=== PATIENT | male | born 1995 | race Caucasian/White ===

== ENCOUNTER 2020-02-21 15:29 | Inpatient (IN) ==
[2020-02-21] MEDS ORDERED: KETOROLAC TROMETHAMINE 15 MG/ML VIAL IV STA (16:26)
[2020-02-21] MEDS ORDERED: ONDANSETRON INJ 2 MG/ML 2 ML VIAL IV STA ×2 (16:26→19:06)
[2020-02-21] MEDS ORDERED: SODIUM CHLORIDE 0.9% 1000ML 1,000 ML IV ONE (16:26)
[2020-02-21 17:15] LABS: Basophils # (auto) 0.03 K/uL (0-0.2); Basophils % (auto) 0.2 %; Eosinophils % (auto) 1.6 %; Hematocrit (blood only) 42.5 % (42-52); Hemoglobin 14.7 g/dL (14.0-18.0); Immature Granulocytes # (auto) 0.02 K/uL (0.00-0.02); Immature Granulocytes % (auto) 0.2 %; Lymphocytes # (auto) 1.52 K/uL (1.2-3.4); Lymphocytes % (auto) 12.2 %; Mean Corpuscular Hemoglobin 31.7 pg (25-34); Mean Corpuscular Hgb Conc 34.6 g/dL (32-36); Mean Corpuscular Volume 91.6 fL (80-100); Mean Platelet Volume 10.1 fL (7.4-10.4); Monocytes # (auto) 1.38 K/uL (0.11-0.59); Monocytes % (auto) 11.1 %; Neutrophils # (auto) 9.31 K/uL (1.4-6.5); Neutrophils % (auto) 74.7 %; Platelet Count 214 K/uL (130-400); RDW Coefficient of Variation 11.8 % (11.5-14.5); RDW Standard Deviation 39.9 fL (36.4-46.3); Red Blood Count 4.64 M/uL (4.7-6.1); White Blood Count 12.46 K/uL (4.8-10.8)
--- NOTE | 2020-02-21 17:29 | Emergency Department Note ---
History of Present Illness General Chief Complaint: Kidney Stone Stated Complaint: KIDNEY STONE Time Seen by Provider: 02/21/20 16:25 History of Present Illness Provider Complaint: flank pain Onset (ago): 1 day(s) Pain Consistency: constant Location: L flank Radiation: none Severity: moderate Maximum Pain Intensity: 7 Current Pain Intensity: 7 Quality: + stabbing and + sharp Relieved By: + nothing Exacerbated By: + nothing Context: + history of similar episodes (History of kidney stones) Associated Symptoms: + nausea, + vomiting (5 times today. No hematemesis coffee-ground emesis or bilious vomiting.) and + dysuria; no fever, no chills, no hematemesis, no hematochezia, no melena, no hematuria, no syncope, no headache and no chest pain Patient reports increased urinary frequency but decreased urinary amount. Patient states he had a lithotripsy done on February 08, 2020, and is scheduled to have a ureteral stent placed next Tuesday. Home Medications Medication Instructions Recorded Confirmed Type tamsulosin 0.4 mg capsule 0.4 mg PO DAILY #30 cap 01/25/20 02/21/20 Rx ibuprofen 800 mg PO Q8H PRN #30 tab 02/15/20 02/21/20 Rx ondansetron 4 mg PO Q6H PRN #14 tab 02/15/20 02/21/20 Rx oxycodone-acetaminophen 5 mg-325 1 tab PO Q8H PRN #10 tab 02/20/20 02/21/20 Rx mg tablet Allergies Allergy/AdvReac Type Severity Reaction Status Date / Time No Known Allergies Allergy Verified 02/21/20 16:51 Past Med/Surg History Medical History Left ureteral calculus Surgical History H/O wisdom tooth extraction History of abdominal surgery as an infant for pyloric stenosis S/P arthroscopy of right shoulder Family History Other No family history of adverse response to anesthesia Social History Smoking Status: Never smoker Tobacco Type: E-cigarettes / Vaping Second Hand Exposure: No; Hx Alcohol Use: Yes Hx Substance Use: Yes (x3 week (recreational)) Last Used Substance Other:: 01/25/20 Preferred Language: Yoruba Communication Ability: Effective Brick Offbearer Required: No Beliefs That Will Affect Care: None Current Living Situation: Other Current Living Situation Comment: room mates current occupational status: student Feels Safe at Home: Yes Assistive Devices: Contacts and Glasses Review of Systems A total of 10 systems reviewed and were otherwise negative Physical Exam Vital Signs: Vital Signs - 24 hr 02/21/20 15:45 02/21/20 17:14 02/21/20 19:02 Temperature 37.4 C Temperature Source Temporal Artery Sc an Pulse Rate 90 Pulse Rate [Right Finger] 73 67 Respiratory Rate 18 16 20 Respiratory Effort / Characteristics Non-Labored Non-Labored Sponta neous Nasal Conges tion Respiratory Depth Normal Normal Blood Pressure [Le ft Arm] 141/97 H 147/91 H Blood Pressure Donna n [Left Arm] 111 109 Blood Pressure Pos ition [Left Arm] Lying Pulse Oximetry 98 98 99 Oxygen Delivery Me thod Room Air Room Air Sepsis Recent Feve r Within 48 Hours No Sepsis New/Unexpla ined Change in Men kymberly Status No Sepsis Action Take n by Nursing No Action Required Physical Exam: Physical Exam GENERAL: He is oriented to person, place, and time. He appears well-developed and well-nourished. He does not appear distressed. HENT: Exam performed. - Head: Normocephalic and atraumatic. - Right Ear: External ear normal. No mastoid tenderness. - Left Ear: External ear normal. No mastoid tenderness. - Mouth/Throat: The oropharynx is clear and moist. No trismus in the jaw. No dental abscesses or uvula swelling. No oropharyngeal exudate or tonsillar abscesses. EYES: Conjunctivae and EOM are normal. Pupils are equal, round, and reactive to light. Right eye exhibits no discharge. Left eye exhibits no discharge. No scleral icterus. NECK: Normal range of motion. Neck supple. No JVD present. No spinous process tenderness present. No carotid bruit present. No rigidity. No tracheal deviation and normal range of motion present. No Brudzinski's sign and no Kernig's sign noted. CV: Normal rate, regular rhythm, normal heart sounds and intact distal pulses. There is no peripheral edema. Palpable radial pulses bue. PULM/CHEST: Effort normal and breath sounds normal. No respiratory distress. No stridor. He has no wheezes. He has no rales. - Chest Wall: He exhibits no tenderness. ABD: The abdomen is soft. Bowel sounds are normal. He has no distension. No mass is present. There is no tenderness. There is no rebound, no guarding, no Lott's sign and no tenderness at McBurney's point. Rovsig negative. Left- sided CVA tenderness. MUSC/SKEL: Normal range of motion. There is no peripheral edema, tenderness or deformity. LYMPH: No cervical adenopathy. NEURO: He is alert and oriented to person, place, and time. He has normal strength. No cranial nerve deficit or sensory deficit. Coordination and gait normal. GCS eye subscore is 4. GCS verbal subscore is 5. GCS motor subscore is 6. Cerebellar tests wnl. SKIN: Skin is warm and dry. He is not diaphoretic. PSYCH: He has a normal mood and affect. Behavior is normal. Judgment and thought content normal. Course Course 1625: The patient was evaluated in room B10. A complete history and physical exam was performed. 1835: Vital signs stable. Labs show leukocytosis of 12.46. Creatinine elevated 1.78. CT does show a left-sided 6 mm kidney stone with hydronephrosis. Discussed with Aubrey Mcdaniel PA-C on-call for urology who states he will be down to admit the patient. Patient states he cannot give urine sample and is in agreement with the plan to be admitted. Administered Medications Sodium Chloride (Nss 1000ml) 1,000 mls @ 100 mls/hr IV .Q10H DREW Stop: 03/22/20 20:29 Last Admin: 02/21/20 20:27 Dose: 100 mls/hr Documented by: [id number] Discontinued Medications Sodium Chloride (Nss 1000ml) 1,000 mls @ 999 mls/hr IV .Q1H1M ONE Stop: 02/21/20 17:26 Last Infusion: 02/21/20 18:12 Dose: 0 mls/hr Documented by: [id number] Admin: 02/21/20 17:11 Dose: 999 mls/hr Documented by: [id number] Ketorolac Tromethamine (Ketorolac Tromethamine 15 Mg/Ml Vial) 15 mg IV NOW STA Stop: 02/21/20 16:27 Last Admin: 02/21/20 17:11 Dose: 15 mg Documented by: [id number] Ondansetron HCl (Ondansetron Inj 2 Mg/Ml 2 Ml Vial) 4 mg IV NOW STA Stop: 02/21/20 16:27 Last Admin: 02/21/20 17:11 Dose: 4 mg Documented by: [id number] Ondansetron HCl (Ondansetron Inj 2 Mg/Ml 2 Ml Vial) 4 mg IV NOW STA Stop: 02/21/20 19:07 Last Admin: 02/21/20 19:11 Dose: 4 mg Documented by: [id number] Medical Decision Making Laboratory Data Result diagrams: 02/21/20 17:00 02/21/20 17:00 Lab Results 02/21/20 02/21/20 02/21/20 Range/Units 17:00 17:00 17:00 WBC 12.46 H (4.8-10.8) K/uL RBC 4.64 L (4.7-6.1) M/uL Hgb 14.7 (14.0-18.0) g/dL Hct 42.5 (42-52) % MCV 91.6 (80-100) fL MCH 31.7 (25-34) pg MCHC 34.6 (32-36) g/dL RDW Std Deviation 39.9 (36.4-46.3) fL RDW Coeff of Jama 11.8 (11.5-14.5) % Plt Count 214 (130-400) K/uL MPV 10.1 (7.4-10.4) fL Immature Gran % (Auto) 0.2 % Neut % (Auto) 74.7 % Lymph % (Auto) 12.2 % Boyle % (Auto) 11.1 % Eos % (Auto) 1.6 % Baso % (Auto) 0.2 % Neut # (Auto) 9.31 H (1.4-6.5) K/uL Lymph # (Auto) 1.52 (1.2-3.4) K/uL Boyle # (Auto) 1.38 H (0.11-0.59) K/uL Eos # (Auto) 0.20 (0-0.5) K/uL Baso # (Auto) 0.03 (0-0.2) K/uL Immature Gran # (Auto) 0.02 (0.00-0.02) K/uL Sodium 141 (136-145) mmol/L Potassium 3.5 (3.5-5.1) mmol/L Chloride 106 (98-107) mmol/L Carbon Dioxide 30 (21-32) mmol/L Anion Gap 5.0 (3-11) BUN 11 (7-18) mg/dl Creatinine 1.78 H (0.6-1.4) mg/dl Est Cr Clr Drug Dosing 67.4 ml/min Est GFR ( Amer) 61.4 Est GFR (Non-Af Amer) 53.0 BUN/Creatinine Ratio 6.3 L (10-20) Glucose 99 (70-99) mg/dl Lactate 1.3 (0.4-2.0) mmol/L Calcium 8.7 (8.5-10.1) mg/dl Total Bilirubin 0.8 (0.2-1) mg/dl Direct Bilirubin 0.2 (0-0.2) mg/dl AST 14 L (15-37) U/L ALT 20 (12-78) U/L Alkaline Phosphatase 72 (45-117) U/L Total Protein 7.7 (6.4-8.2) gm/dl Albumin 4.2 (3.4-5.0) gm/dl Lipase 91 (73-393) U/L SARS-CoV-2 Ag (Rapid) (Negative) 02/21/20 Range/Units 19:12 WBC (4.8-10.8) K/uL RBC (4.7-6.1) M/uL Hgb (14.0-18.0) g/dL Hct (42-52) % MCV (80-100) fL MCH (25-34) pg MCHC (32-36) g/dL RDW Std Deviation (36.4-46.3) fL RDW Coeff of Jama (11.5-14.5) % Plt Count (130-400) K/uL MPV (7.4-10.4) fL Immature Gran % (Auto) % Neut % (Auto) % Lymph % (Auto) % Boyle % (Auto) % Eos % (Auto) % Baso % (Auto) % Neut # (Auto) (1.4-6.5) K/uL Lymph # (Auto) (1.2-3.4) K/uL Boyle # (Auto) (0.11-0.59) K/uL Eos # (Auto) (0-0.5) K/uL Baso # (Auto) (0-0.2) K/uL Immature Gran # (Auto) (0.00-0.02) K/uL Sodium (136-145) mmol/L Potassium (3.5-5.1) mmol/L Chloride (98-107) mmol/L Carbon Dioxide (21-32) mmol/L Anion Gap (3-11) BUN (7-18) mg/dl Creatinine (0.6-1.4) mg/dl Est Cr Clr Drug Dosing ml/min Est GFR ( Amer) Est GFR (Non-Af Amer) BUN/Creatinine Ratio (10-20) Glucose (70-99) mg/dl Lactate (0.4-2.0) mmol/L Calcium (8.5-10.1) mg/dl Total Bilirubin (0.2-1) mg/dl Direct Bilirubin (0-0.2) mg/dl AST (15-37) U/L ALT (12-78) U/L Alkaline Phosphatase (45-117) U/L Total Protein (6.4-8.2) gm/dl Albumin (3.4-5.0) gm/dl Lipase (73-393) U/L SARS-CoV-2 Ag (Rapid) Negative (Negative) Imaging Data Radiologist's Impression: CT SCAN OF THE ABDOMEN AND PELVIS WITHOUT IV CONTRAST CLINICAL HISTORY: Left flank pain. COMPARISON STUDY: Abdominal CT dated 02/15/2020. TECHNIQUE: CT scan of the abdomen and pelvis is performed from the lung bases to the proximal femora. Images are reviewed in the axial, sagittal, and coronal planes. IV contrast was not administered for this examination. A dose lowering technique was utilized adhering to the principles of ALARA. CT DOSE: 318.25 mGy.cm FINDINGS: Lung bases: The heart is normal in size and without pericardial effusion. The lung bases are clear. Liver: The unenhanced liver is normal in size, contour, and attenuation. There is no intrahepatic biliary ductal dilatation. Gallbladder: Unremarkable. Spleen: Normal in size and attenuation. Pancreas: Unremarkable. Adrenal glands: Unremarkable. Kidneys: The unenhanced kidneys are normal in size. There is a 6 mm obstructing calculus in the distal left ureter located just above the vesicoureteral junction seen on image #375. This causes moderate left hydroureteronephrosis. There is associated left-sided perinephric and periureteric stranding. No additional left renal calculi are identified. No right renal calculi are seen and there is no right-sided hydronephrosis. There is no evidence of contour deforming renal mass lesion. Abdominal vasculature: The abdominal aorta is normal in course and caliber. Bowel: There is no bowel obstruction. The appendix is well-visualized and normal. Peritoneum: There is no intraperitoneal free air or abdominal ascites. Lymphadenopathy: None. Pelvic viscera: The bladder is decompressed and grossly unremarkable. The prostate and seminal vesicles are normal as visualized. Skeletal structures: No lytic or blastic lesions are seen. IMPRESSION: 1. There is a 6 mm obstructing calculus in the distal left ureter just above the vesicoureteral junction. This causes moderate left hydroureteronephrosis and has not significantly changed from 02/15/2020. 2. No additional calculi are identified in either kidney. ACT 112: Negative or not required by law. Electronically signed by: Adama Gomes M.D. 02/21/2020 6:23 PM Dictated: 02/21/201817Transcribed: 02/21/201817 MDM Narrative Vital signs stable. Labs show leukocytosis of 12.46. Creatinine elevated 1.78. CT does show a left-sided 6 mm kidney stone with hydronephrosis. Discussed with Aubrey Mcdaniel PA-C on-call for urology who states he will be down to admit the patient. Patient states he cannot give urine sample and is in agreement with the plan to be admitted. Impression & Plan Hydronephrosis due to obstruction of ureter, Ureterolithiasis, ELLA (acute kidney injury) Discharge Plan Visit Data Chief Complaint: Kidney Stone Stated Complaint: KIDNEY STONE ED Provider: Binu Vasquez Discharge Problem: Hydronephrosis due to obstruction of ureter, Ureterolithiasis, ELLA (acute kidney injury) Patient Disposition: Being Evaluated by Surgeon Forms Stand Alone Forms: Clicks for a Cause Prescriptions Prescriptions: No Action oxycodone-acetaminophen 5-325 mg tablet 1 tab PO Q8H PRN (Reason: Pain) Qty: 10 RF: 0 tamsulosin [Flomax] 0.4 mg capsule 0.4 mg PO DAILY Qty: 30 RF: 1 ibuprofen 800 mg tablet 800 mg PO Q8H PRN (Reason: pain) Qty: 30 RF: 0 ondansetron 4 mg tablet,disintegrating 4 mg PO Q6H PRN (Reason: nausea and vomiting) Qty: 14 RF: 0 Referrals Referrals: [facility] [Primary Care Provider] -
[2020-02-21 17:34] LABS: Albumin Level 4.2 gm/dl (3.4-5.0); BUN Creatinine Ratio 6.3 (10-20); Bilirubin Direct 0.2 mg/dl (0-0.2); Calcium 8.7 mg/dl (8.5-10.1); Creatinine Clr Calc Pharmacy 67.4 ml/min; Est GFR (African American) 61.4; Potassium 3.5 mmol/L (3.5-5.1)
[2020-02-21 17:37] LABS: Bilirubin,Total 0.8 mg/dl (0.2-1); Total Protein 7.7 gm/dl (6.4-8.2)
--- NOTE | 2020-02-21 18:24 | CT Scan Report ---
CT SCAN OF THE ABDOMEN AND PELVIS WITHOUT IV CONTRAST CLINICAL HISTORY: Left flank pain. COMPARISON STUDY: Abdominal CT dated 02/15/2020. TECHNIQUE: CT scan of the abdomen and pelvis is performed from the lung bases to the proximal femora. Images are reviewed in the axial, sagittal, and coronal planes. IV contrast was not administered for this examination. A dose lowering technique was utilized adhering to the principles of ALARA. CT DOSE: 318.25 mGy.cm FINDINGS: Lung bases: The heart is normal in size and without pericardial effusion. The lung bases are clear. Liver: The unenhanced liver is normal in size, contour, and attenuation. There is no intrahepatic jasmin iary ductal dilatation. Gallbladder: Unremarkable. Spleen: Normal in size and attenuation. Pancreas: Unremarkable. Adrenal glands: Unremarkable. Kidneys: The unenhanced kidneys are normal in size. There is a 6 mm obstructing calculus in the dista l left ureter located just above the vesicoureteral junction seen on image #375. This causes moderate left hydroureteronephrosis. There is associated left-sided perinephric and periureteric stranding. N o additional left renal calculi are identified. No right renal calculi are seen and there is no right -sided hydronephrosis. There is no evidence of contour deforming renal mass lesion. Abdominal vasculature: The abdominal aorta is normal in course and caliber. Bowel: There is no bowel obstruction. The appendix is well-visualized and normal. Peritoneum: There is no intraperitoneal free air or abdominal ascites. Lymphadenopathy: None. Pelvic viscera: The bladder is decompressed and grossly unremarkable. The prostate and seminal vesicl es are normal as visualized. Skeletal structures: No lytic or blastic lesions are seen. IMPRESSION: 1. There is a 6 mm obstructing calculus in the distal left ureter just above the vesicoureteral junct ion. This causes moderate left hydroureteronephrosis and has not significantly changed from 0. 2. No additional calculi are identified in either kidney. ACT 112: Negative or not required by law. Electronically signed by: Adama Gomes M.D. 02/21/2020 6:23 PM
--- NOTE | 2020-02-21 20:16 | History & Physical Report ---
Date of Service February 21, 2020 Assessment & Plan (1) Hydronephrosis due to obstruction of ureter: -will admit to hospital and proceed as follows: -provide analgesics -provide anti-emetics -continue flomax -hydrate with IVF -NPO after midnight for possible cysto/stent tomorrow--urologist TBD COVID-19 test performed and noted to be (-) (2) ELLA (acute kidney injury): -see plan above -avoid nephrotoxins History of Present Illness Chief Complaint: Left Flank Pain Primary Care Provider: [facility] 24 year old male with hx. of lithotripsy on 02/08/20. He notes the lithotripsy was unsuccessful so he was scheduled for a cysto/stent by Dr. Carlson on 02/27/20. Earlier today he developed worsening left flank pain. The pain is in his left flank/back without radiation. No palliative factors noted other than pain meds given in ED. No provocative factors noted. He denies rigors, fevers, chills, or dysuria. He denies abdominal pain but has N/V. In the ED he was noted to be afebrile, WBC was 12K, and Cr was 1.7. CT scan of abdomen showed an obstructing 6 mm kidney stone on left side. At the time of my exam he was in no distress. Allergies Allergy/AdvReac Type Severity Reaction Status Date / Time No Known Allergies Allergy Verified 02/21/20 16:51 Home Medications Medication Instructions Recorded Confirmed Type tamsulosin 0.4 mg capsule 0.4 mg PO DAILY #30 cap 01/25/20 02/21/20 Rx ibuprofen 800 mg PO Q8H PRN #30 tab 02/15/20 02/21/20 Rx ondansetron 4 mg PO Q6H PRN #14 tab 02/15/20 02/21/20 Rx oxycodone-acetaminophen 5 mg-325 1 tab PO Q8H PRN #10 tab 02/20/20 02/21/20 Rx mg tablet Past Med/Surg History Medical History Left ureteral calculus Surgical History H/O wisdom tooth extraction History of abdominal surgery as an infant for pyloric stenosis S/P arthroscopy of right shoulder Family History Other No family history of adverse response to anesthesia Social History Smoking Status: Never smoker Tobacco Type: E-cigarettes / Vaping Second Hand Exposure: No; Hx Alcohol Use: Yes Hx Substance Use: Yes (x3 week (recreational)) Last Used Substance Other:: 01/25/20 Preferred Language: Cook Islander Communication Ability: Effective Landscape Specialist Required: No Beliefs That Will Affect Care: None Current Living Situation: Other Current Living Situation Comment: room mates current occupational status: student Other Information That Helps Us Care for You: No Feels Safe at Home: Yes Safety Concerns: Feels Safe At This Time Assistive Devices: None Review of Systems Constitutional: no fever, no chills and no sweats Eyes: no diplopia Ear, Nose, Mouth, Throat: no ear pain Respiratory: no cough and no dyspnea Cardiovascular: no chest pain Gastrointestinal: + nausea and + vomiting; no abdominal pain Genitourinary: + flank pain (left); no dysuria Musculoskeletal: + back pain (left flank) Integumentary: no rash Neurologic: no localized weakness Physical Exam Constitutional: well developed and well nourished; no acute distress Eyes: no conjunctival abnormality ENMT: Ears: no hearing impairment Neck: trachea midline Respiratory: normal respiratory effort, lungs clear to auscultation Cardiovascular: Rate/Rhythm: regular rate and regular rhythm Gastrointestinal (Abdomen): Percussion/Palpation: abdomen soft; abdomen nontender Left CVA tenderness with percussion Musculoskeletal: no LE edema bilaterally or calf pain Skin: no rashes, warm and dry Neurologic: moves all extremities Psychiatric: A+Ox3, euthymic affect Results & Data Results & Data ([facility]) Vital Signs (Past 12 Hours) Vital Signs Temp Pulse Pulse Resp BP Pulse Ox 02/21/20 19:02 67 20 147/91 H 99 02/21/20 17:14 73 16 141/97 H 98 02/21/20 15:45 37.4 C 90 18 98 Code Status & VTE Plan VTE Prophylaxis Plan VTE Prophylaxis will be ordered: Yes Supervising Physician Co-Signing Physician Notes Pt evaluated Agree with above Still with pain Will take to OR for Ureteroscopy, stone removal and stent placement left kidney PG Care Time/CCT Total # of Minutes Spent Total Time Spent with Patient: Total time spent is greater than 50% in coordination of care (as documented) at patient's floor/unit and/or counseling patient: Coding Level of Care Code 94436 Initial Inpt Care Lvl 3 Diagnoses Hydronephrosis due to obstruction of ureter N13.2 ELLA (acute kidney injury) N17.9
[2020-02-21] MEDS: SODIUM CHLORIDE 0.9% 1000ML 1,000 ML IV SCH (20:27)
[2020-02-21] MEDS ORDERED: oxyCODONE HCL IR 5 MG TAB (IMMEDIATE RELEASE) PO PRN (22:15)
[2020-02-21] MEDS ORDERED: MoRPHine SULFATE 2 MG/ML CARP IV PRN (22:15)
[2020-02-21] MEDS: ACETAMINOPHEN 1,000 MG/100 ML VIAL IV SCH (22:46)
[2020-02-21] MEDS: ONDANSETRON INJ 2 MG/ML 2 ML VIAL IV SCH (22:46)
[2020-02-21] MEDS: CIPROFLOXACIN / D5W 400 MG/200 ML BAG IV SCH (23:57)
[2020-02-22 05:38] LABS: Basophils # (auto) 0.02 K/uL (0-0.2); Basophils % (auto) 0.2 %; Hematocrit (blood only) 38.4 % (42-52); Hemoglobin 13.4 g/dL (14.0-18.0); Immature Granulocytes # (auto) 0.02 K/uL (0.00-0.02); Immature Granulocytes % (auto) 0.2 %; Lymphocytes # (auto) 1.81 K/uL (1.2-3.4); Mean Corpuscular Volume 91.6 fL (80-100); Mean Platelet Volume 10.1 fL (7.4-10.4); Monocytes # (auto) 1.68 K/uL (0.11-0.59); Monocytes % (auto) 16.7 %; Neutrophils % (auto) 62.9 %; Platelet Count 216 K/uL (130-400); RDW Coefficient of Variation 11.9 % (11.5-14.5); RDW Standard Deviation 40.3 fL (36.4-46.3); Red Blood Count 4.19 M/uL (4.7-6.1); White Blood Count 10.03 K/uL (4.8-10.8)
[2020-02-22 05:39] LABS: Mean Corpuscular Hgb Conc 34.9 g/dL (32-36)
[2020-02-22 06:01] LABS: BUN Creatinine Ratio 6.2 (10-20); Creatinine Clr Calc Pharmacy 62.8 ml/min; Est GFR (African American) 56.4; Est GFR (Non-African American) 48.6
[2020-02-22] MEDS: ACETAMINOPHEN 1,000 MG/100 ML VIAL IV SCH (06:16)
[2020-02-22] MEDS: ONDANSETRON INJ 2 MG/ML 2 ML VIAL IV SCH ×2 (06:17→11:48)
[2020-02-22] MEDS: SODIUM CHLORIDE 0.9% 1000ML 1,000 ML IV SCH (06:30)
[2020-02-22] MEDS ORDERED: fentaNYL citrate 100 MCG/2 ML VIAL ONE (07:53)
[2020-02-22] MEDS ORDERED: MIDAZOLAM HCL 1 MG/ML 2ML VIAL ONE (07:53)
[2020-02-22] MEDS ORDERED: PROPOFOL IV EMULSION 10 MG/ML 20 ML VIAL IV ONE (07:53)
[2020-02-22] MEDS ORDERED: LIDOCAINE HCL 2% 2 ML VIAL/AMP(20MG/ML) INFIL ONE (07:53)
[2020-02-22 08:58] LABS: Appearance Urine Clear (Clear); Bilirubin Urine Negative (Negative); Blood Urine Negative (Negative); Color Urine Yellow; Glucose Urine UA Negative (Negative); Ketones Urine 2+ (Negative); Leukocyte Esterase Urine Negative (Negative); Nitrite Urine Negative (Negative); Protein Urine Negative (Negative); Urobilinogen Urine Negative (Negative)
[2020-02-22] MEDS ORDERED: TAMSULOSIN HCL 0.4 MG CAP PO SCH (09:00)
--- NOTE | 2020-02-22 09:17 | Anesthesiology Consultation ---
Date of Service February 22, 2020 Assessment & Plan (1) Encounter for pre-operative examination: Chart Review Chart Review: Acceptable Risk for Surgery and Patient NOT seen in Pre Admission Testing covid neg 02/22/2020. Consults Requested none History Surgery Operation Date: 02/22/20 10:20 Proposed Procedures p Cystoscopy, Left Stent Placement - Narinder Mathis MD Height/Weight Height: 6 ft 1 in Weight: 73.2 kg Allergies Allergy/AdvReac Type Severity Reaction Status Date / Time No Known Allergies Allergy Verified 02/21/20 16:51 Medications Home Medications Medication Instructions Recorded Confirmed Last Taken tamsulosin 0.4 mg capsule 0.4 mg PO DAILY #30 cap 01/25/20 02/21/20 02/21/20 ibuprofen 800 mg PO Q8H PRN #30 tab 02/15/20 02/21/20 02/21/20 ondansetron 4 mg PO Q6H PRN #14 tab 02/15/20 02/21/20 02/21/20 oxycodone-acetaminophen 5 mg-325 1 tab PO Q8H PRN #10 tab 02/20/20 02/21/20 02/21/20 mg tablet Active Medications Generic Name Dose Route Start Last Admin Trade Name Freq PRN Reason Stop Dose Admin Sodium Chloride 1,000 mls @ 100 mls/hr 02/21/20 20:30 02/22/20 06:30 Nss 1000ml IV 03/22/20 20:29 100 mls/hr .Q10H DREW Administration Acetaminophen 1,000 mg in 100 mls @ 400 mls/hr 02/21/20 22:45 02/22/20 06:39 Ofirmev IV 02/24/20 22:44 Infused Q8 DREW Infusion Ciprofloxacin 400 mg in 200 mls @ 100 mls/hr 02/21/20 23:00 02/22/20 02:10 Cipro / D5w IV 03/02/20 22:59 Infused Q12H DREW Infusion Protocol Morphine Sulfate 2 mg 02/21/20 22:15 02/21/20 22:46 Morphine Sulfate 2 Mg/Ml Carp IV 03/06/20 22:14 2 mg Q3H PRN Administration Pain Ondansetron HCl 4 mg 02/21/20 22:45 02/22/20 06:17 Ondansetron Inj 2 Mg/Ml 2 Ml Vial IV 03/22/20 22:44 4 mg Q6 DREW Administration Tamsulosin HCl 0.4 mg 02/22/20 09:00 02/22/20 08:41 Tamsulosin Hcl 0.4 Mg Cap PO 03/23/20 08:59 Not Given DAILY DREW Past Medical History Medical History Left ureteral calculus Past Family History Family History Other No family history of adverse response to anesthesia Past Surgical History Surgical History H/O wisdom tooth extraction History of abdominal surgery as an infant for pyloric stenosis S/P arthroscopy of right shoulder Left ESWL 02/08/2020. LMA #4. No issues. Social History Smoking Status: Never smoker tobacco type: e-cigarettes Hx Alcohol Use: Yes alcohol intake frequency: a few times a week Alcohol Intake Frequency Comment: patient states he has not used alcohol in two months Hx Substance Use: Yes (x3 week (recreational)) substance use type: marijuana Last Used Substance Other:: 01/25/20 Physical Exam Vital Signs Last Vital Signs Temp 36.7 C 02/22/20 07:25 Pulse 71 02/22/20 07:25 Resp 16 02/22/20 07:25 BP 120/72 02/22/20 07:25 Pulse Ox 94 02/22/20 07:25 Testing Laboratory Results 02/22/20 05:26 02/22/20 05:26 Urine Color Yellow 02/22/20 08:37 Urine Appearance Clear (Clear) 02/22/20 08:37 Urine pH 6.0 (4.5-7.5) 02/22/20 08:37 Ur Specific [place] 1.020 (1.000-1.030) 02/22/20 08:37 Urine Protein Negative (Negative) 02/22/20 08:37 Urine Glucose (UA) Negative (Negative) 02/22/20 08:37 Urine Ketones 2+ (Negative) H 02/22/20 08:37 Urine Nitrite Negative (Negative) 02/22/20 08:37 Ur Leukocyte Esterase Negative (Negative) 02/22/20 08:37
[2020-02-22] MEDS ORDERED: ATROPINE SULFATE 0.1 MG/ML 10ML SYR IV PRN (09:18)
[2020-02-22] MEDS ORDERED: HYDROmorphone INJ 1 MG/ML SYRINGE IV PRN (09:18)
[2020-02-22] MEDS ORDERED: fentaNYL citrate 100 MCG/2 ML VIAL IV PRN (09:18)
[2020-02-22] MEDS ORDERED: ONDANSETRON INJ 2 MG/ML 2 ML VIAL IV PRN (09:18)
[2020-02-22] MEDS ORDERED: ePHEDrine sulfate 50 MG/ML AMP IV PRN (09:18)
[2020-02-22] MEDS ORDERED: ONDANSETRON INJ 2 MG/ML 2 ML VIAL ONE (10:44)
[2020-02-22] MEDS ORDERED: DEXAMETHASONE SOD INJ 4 MG/ML VIAL ONE (10:44)
--- NOTE | 2020-02-22 10:59 | Operative Report ---
[facility] Post Operative Report Pre & Post Diagnosis Operation Date: 02/22/20 10:20 Pre-Op Diagnosis: Ureteral calculus Left Post-Op Diagnosis: Ureteral calculus left I identified the patient and participated in the time-out.: Yes Procedure Operation Date: 02/22/20 10:20 Actual Procedures p Cystoscopy, Ureteroscopy,Laser lithotripsy, Left Ureteral Stent Insertion, Basket stone Extraction(Left) - Narinder Mathis MD Surgeon Narinder Mathis MD Insurance Processor None Estimated Blood Loss 0 Findings See Below Cystoscopy showed a normal anterior urethra Prostatic fossa was not obstructed Letter showed no mucosal abnormalities Left ureteroscopy showed a distal ureteral calculus Specimens Stone for analysis Drains 6 Nepali multilength left ureteral stent Anesthesia Type General Complications none Disposition Accompanied Patient To Recovery: Yes Disposition: Recovery Room Indications 24-year-old white male admitted to the emergency room with left renal colic secondary to a 6 mm left ureterovesical junction stone. He has failed extracorporal shockwave lithotripsy is being brought in now for ureteroscopy laser lithotripsy and stent placement Description of Procedure After the induction of an adequate general anesthetic and appropriate timeout patient was placed in the dorsolithotomy position.Lower abdomen genitalia were prepped with Hibiclens draped in a sterile fashion.Using a 22 Nepali cystoscope routine cystoscopic exam was performed with the above-noted findings with the 30 and 70 degree lenses Next under fluoroscopic guidance a 0.038 guidewire was passed up the left ureter to position in the renal pelvis. 10 Nepali dual-lumen catheter was then passed over the guidewire to dilate the intramural tunnel.This catheter was removed along with the cystoscopeUreteroscope was then inserted and ureteroscopy was performed. Stone was in the distal ureter next using a200 m holmium laser fiber the stone was broken into multiple small pieces.After breaking the stone adequately a basket was used to extract the Stone fragments from the ureter.2 of these were handed off the table for stone analysisUreteroscope was then removed. The guidewire was rethreaded through the cystoscopeAnd a 6 Nepali MultiLength stent was passed over the guidewire up the left ureter into the left renal pelvis confirmed by fluoroscopy. Guidewire was removed there was good curl at the bladder level.Patient's bladder was then drained.Cystoscope and sheath removed.All needle sponge and instrument counts were correct at the end of the case.Patient tolerated the procedure well was taken recovery in stable condition I attest to the content of the Intraoperative Record and any orders documented therein. Any exceptions are noted below.
--- NOTE | 2020-02-22 11:05 | Fluoroscopy Report ---
FL retrograde includes kub CLINICAL HISTORY: LT CYSTO/STENT COMPARISON STUDY: None. FLUOROSCOPY TIME: 42 seconds. FINDINGS: 8 fluoroscopic spot images of the abdomen and pelvis were submitted. There is retrograde op acification of the left renal collecting system followed by placement of a left ureteral stent. The p roximal portion of the stent is identified and appears in good position. IMPRESSION: Fluoroscopy provided for left ureteral stent placement. ACT 112: Negative or not required by law. Electronically signed by: Leon Gramajo M.D. 02/22/2020 11:04 AM
[2020-02-22] MEDS: CIPROFLOXACIN / D5W 400 MG/200 ML BAG IV SCH (11:47)
--- NOTE | 2020-02-22 13:48 | Anesthesiology Progress Note ---
Date of Service February 22, 2020 Anesthesia Post Procedure Vital Signs Vital Signs: Temp Pulse Pulse Pulse Resp BP BP 02/22/20 12:58 36.7 C 60 18 134/81 02/22/20 11:48 36.7 C 60 18 134/81 02/22/20 11:33 36.9 C 81 18 124/47 L 02/22/20 11:05 37.2 C 71 18 122/81 02/22/20 10:55 61 14 126/84 02/22/20 10:45 74 13 126/90 02/22/20 10:37 36.3 C L 64 12 125/75 02/22/20 09:27 36.8 C 78 16 145/90 H 02/22/20 07:25 36.7 C 71 16 120/72 02/21/20 22:18 37.0 C 63 18 147/79 H 02/21/20 20:40 76 20 133/89 02/21/20 19:02 67 20 147/91 H 02/21/20 17:14 73 16 141/97 H 02/21/20 15:45 37.4 C 90 18 Pulse Ox 02/22/20 12:58 97 02/22/20 11:48 97 02/22/20 11:33 98 02/22/20 11:05 98 02/22/20 10:55 100 02/22/20 10:45 100 02/22/20 10:37 99 02/22/20 09:27 98 02/22/20 07:25 94 02/21/20 22:18 98 02/21/20 20:40 99 02/21/20 19:02 99 02/21/20 17:14 98 02/21/20 15:45 98 Pain Intensity Left Flank: Pain Intensity: 7 Transfer of Care Handoff Completed per policy Notes Mental Status: alert / awake / arousable and participated in evaluation Patient Amnestic to Procedure: Yes Nausea / Vomiting: adequately controlled Pain: adequately controlled Airway Patency, RR, SpO2: stable & adequate BP & HR: stable & adequate Hydration State: stable & adequate Anesthetic Complications: no major complications apparent and Pt Satisfied with anesthetic care
[2020-02-28 12:22] LABS: Component 2 DNR; Source URETER STONW
== END 2020-02-22 14:28 | disposition home or self-care (01) | DRG 661 ==
LOC: ED 15:29 → 2N 20:08